=== PATIENT | male | born 1970 | race Caucasian/White ===

== ENCOUNTER → 2023-07-10 08:18 | Outpatient (BNVA) | payer OTHER, SELFPAY | PROVIDERS: Family Provider Nurse Practitioner Family; PCP Nurse Practitioner Family; Visit Provider Nurse Practitioner Family | DX: R10.9 Unspecified abdominal pain (principal); N20.0 Calculus of kidney; L98.9 Disorder of the skin and subcutaneous tissue, unspecified | CPT/HCPCS: 81000 ==